=== PATIENT | male | born 1955 | race Caucasian/White ===

== ENCOUNTER 2022-03-10 22:14 | Emergency (ER) | payer MEDICARE, OTHER ==
[~2022-03-10] VITALS: Ht 170.2 cm; Wt 52.3 kg
[2022-03-10] MEDS ORDERED: [UNRECOGNIZED DRUG - CODE] PO (22:33)
[2022-03-10] MEDS ORDERED: MUPI22OI2 TP (22:33)
[2022-03-10] MEDS ORDERED: TAMS-13 PO (22:33)
[2022-03-10] MEDS ORDERED: EZET10TA57 PO (22:33)
[2022-03-10] MEDS ORDERED: LORA10TA7 PO (22:33)
[2022-03-10] MEDS ORDERED: FAMO20TA8 PO (22:33)
[2022-03-10] MEDS ORDERED: CLOT15CR23 TP (22:33)
[2022-03-10] MEDS ORDERED: PANT40TA54 PO (22:33)
[2022-03-10] MEDS ORDERED: ISOS30TA92 PO (22:33)
[2022-03-10] MEDS ORDERED: ATOR40TA71 PO (22:33)
[2022-03-10] MEDS ORDERED: LOSA-382 PO (22:33)
[2022-03-10] MEDS ORDERED: TACR30OI5 TP (22:33)
[2022-03-10] MEDS ORDERED: MONT-40 PO (22:33)
[2022-03-10] MEDS ORDERED: EZETIMIBE 10 MG TABLET PO ONE (23:30)
[2022-03-10] MEDS ORDERED: ATORVASTATIN CALCIUM 40 MG TABLET PO ONE (23:30)
[2022-03-10] MEDS ORDERED: LOSARTAN POTASSIUM 50 MG TABLET PO ONE (23:30)
[2022-03-11] MEDS ORDERED: ACETAMINOPHEN 500 MG TABLET PO ONE
[2022-03-11 01:57] LABS: BASOPHILS % (AUTO) 0.6 % (0.0-2.0); EOSINOPHILS % (AUTO) 0.9 % (1.0-6.0); HEMATOCRIT 37.4 % (41-53); HEMOGLOBIN 12.6 g/dL (13.5-17.5); LYMPHOCYTES % (AUTO) 23.7 % (22.0-44.0); MEAN CORPUSCULAR HEMOGLOBIN 30.9 pg (26.0-34.0); MEAN CORPUSCULAR HGB CONC 33.6 G/dL (31.0-37.0); MEAN CORPUSCULAR VOLUME 92 fL (80-100); MONOCYTES # (AUTO) 0.3 K/uL (0.1-1.0); NEUTROPHILS # (AUTO) 2.7 K/uL (1.8-7.7); NEUTROPHILS % (AUTO) 67.8 % (40.0-70.0); PLATELET COUNT (AUTO) 102 K/uL (150-450); RED BLOOD CELL COUNT(AUTO) 4.07 MIL/uL (4.50-5.90); RED CELL DISTRIBUTION WIDTH 12.9 % (11.5-14.5)
[2022-03-11 02:06] LABS: ANION GAP 4 mmol/L (8-16); CALCIUM, TOTAL 8.8 mg/dL (8.8-10.5); CARBON DIOXIDE 31 mmol/L (22-29); CHLORIDE 103 mmol/L (98-107); GLUCOSE,RANDOM 127 mg/dL (70-110); SODIUM SERUM 138 mmol/L (136-145); UREA NITROGEN, BLOOD 16 mg/dL (7-18)
[2022-03-11 02:07] LABS: GLOMERULAR FILTR. RATE CALC > 60 mL/min (>60)
[2022-03-11 02:12] LABS: ALANINE AMINOTRANSFERASE 41 U/L (12-78); ALBUMIN 3.4 g/dL (3.4-5.0); ALKALINE PHOSPHATASE 80 U/L (46-116); ASPARTATE AMINOTRANSFERASE 22 U/L (15-37); BILIRUBIN,TOTAL 0.7 mg/dL (0.1-1.0); TOTAL PROTEIN, SERUM 6.3 g/dL (6.4-8.2)
[2022-03-11] MEDS ORDERED: TACR30OI5 TP (02:44)
[2022-03-11] MEDS ORDERED: FAMO20TA8 PO (02:44)
[2022-03-11] MEDS ORDERED: ATOR40TA71 PO (02:44)
[2022-03-11] MEDS ORDERED: EZET10TA57 PO (02:44)
[2022-03-11] MEDS ORDERED: ISOS30TA92 PO (02:44)
[2022-03-11] MEDS ORDERED: ASPI81TA87 PO (02:44)
[2022-03-11] MEDS ORDERED: LOSA-382 PO (02:44)
[2022-03-11] MEDS ORDERED: LORA10TA7 PO (02:44)
[2022-03-11] MEDS ORDERED: CHOL25TA4 PO (02:44)
[2022-03-11] MEDS ORDERED: [UNRECOGNIZED DRUG - CODE] PO (02:44)
[2022-03-11] MEDS ORDERED: TAMS-13 PO (02:44)
[2022-03-11] MEDS ORDERED: CLOT15CR23 TP (02:44)
[2022-03-11] MEDS ORDERED: MONT-40 PO (02:44)
[2022-03-11] MEDS ORDERED: PANT40TA54 PO (02:44)
[2022-03-11 04:20] LABS: COVID AG,FIA SOURCE NASOPHARYNGEAL
[2022-03-11 18:19] VITALS: BP 138/73
== END 2022-03-11 20:21 | disposition home or self-care (01) ==
LOC: EMS 22:20
DX: R05.9 Cough, unspecified (principal); X00.1XXA Exposure to smoke in uncontrolled fire in building or structure, initial encounter; Z20.822 Contact with and (suspected) exposure to COVID-19; M41.9 Scoliosis, unspecified; Y93.89 Activity, other specified; Y92.89 Other specified places as the place of occurrence of the external cause; Y99.8 Other external cause status
CPT/HCPCS: 71045; 80053; 84484; 85025; 93005; 99285; 36415-L1; 36415-TC